=== PATIENT | female | born 1955 | race Caucasian/White ===

== ENCOUNTER 2022-09-04 13:30 | Emergency (ER) | payer MEDICARE, OTHER ==
[~2022-09-04] VITALS: Ht 152.4 cm; Wt 81.8 kg
[2022-09-04] MEDS ORDERED: IOHEXOL 300 MG/ML 100ML BOTTLE IJ ONE (14:52)
[2022-09-04 15:10] LABS: Basophils # (auto) 0 10 ^3/uL (0-0.2); Basophils % (auto) 0.3 % (0.0-2.0); Eosinophils # (auto) 0.2 10 ^3/uL (0-0.8); Eosinophils % (auto) 2.3 % (0.0-7.0); Hematocrit 32.8 % (36.0-46.0); Hemoglobin 11.4 g/dL (12.2-16.2); Lymphocytes # (auto) 1.1 10 ^3/uL (0.4-5.4); Lymphocytes % (auto) 12.2 % (10.0-50.0); Mean Corpuscular Hemoglobin 31.3 pg (28.0-32.0); Mean Corpuscular Hgb Conc. 34.6 g/dL (32.0-36.0); Mean Corpuscular Volume 90.5 fL (80.0-100.0); Monocytes # (auto) 0.5 10 ^3/uL (0-1.3); Monocytes % (auto) 5.7 % (0.0-12.0); Neutrophils % (auto) 79.5 % (37.0-80.0); Nucleated Red Blood Cells % 0.1 %; Red Blood Cells 3.63 10^6/uL (4.0-5.20); Red Cell Distribution Width 14.3 % (11.8-14.3); White Blood Cell 8.8 10^3/uL (4.4-10.8)
[2022-09-04 15:19] LABS: INR 1.02 (0.9-1.15); Partial Thromboplastin Time 26.9 sec (24.6-33.4)
[2022-09-04 15:28] LABS: Albumin 3.2 g/dL (3.4-5.0); BUN/Creatinine Ratio 26.4; Potassium 3.8 mmol/L (3.5-5.1)
[2022-09-04 15:31] LABS: Bilirubin, Total 0.2 mg/dL (0.2-1.0); Total Protein 6.2 g/dL (6.4-8.2)
[2022-09-04] MEDS ORDERED: HYDROcodone-ACET 5/325MG TAB PO ONE ×2 (16:15→17:45)
[2022-09-04] MEDS ORDERED: THIAMINE 100mg/ml INJ (200mg/2ml VIAL) IV ONE (16:45)
[2022-09-04] MEDS ORDERED: FOLIC ACID 1 MG in D5W 5% 50 ML INJ ONE (16:45)
[2022-09-04 16:55] LABS: Urine Bacteria NONE SEEN /hpf (None Seen); Urine Blood Negative /uL (Negative); Urine Mucus FEW (None Seen); Urine WBC 1 /hpf (0 - 5)
[2022-09-04 18:07] LABS: Basophils # (auto) 0 10 ^3/uL (0-0.2); Basophils % (auto) 0.3 % (0.0-2.0); Eosinophils # (auto) 0 10 ^3/uL (0-0.8); Eosinophils % (auto) 0.5 % (0.0-7.0); Hemoglobin 9.9 g/dL (12.2-16.2); Lymphocytes # (auto) 0.8 10 ^3/uL (0.4-5.4); Lymphocytes % (auto) 7.8 % (10.0-50.0); Mean Corpuscular Hemoglobin 31.1 pg (28.0-32.0); Mean Corpuscular Hgb Conc. 34.2 g/dL (32.0-36.0); Monocytes # (auto) 0.6 10 ^3/uL (0-1.3); Monocytes % (auto) 5.7 % (0.0-12.0); Neutrophils # (auto) 8.4 10 ^3/uL (1.6-8.6); Neutrophils % (auto) 85.7 % (37.0-80.0); Nucleated Red Blood Cells % 0.1 %; Red Blood Cells 3.19 10^6/uL (4.0-5.20); Red Cell Distribution Width 14.1 % (11.8-14.3); White Blood Cell 9.8 10^3/uL (4.4-10.8)
[2022-09-04 19:48] VITALS: BP 118/52
[2022-09-04 20:04] VITALS: BP 122/56
[2022-09-04 20:30] VITALS: BP 128/60
[2022-09-04 21:01] VITALS: BP 113/68
[2022-09-04 21:10] VITALS: BP 122/55
[2022-09-04 21:20] VITALS: BP 113/68
== END 2022-09-04 21:54 | disposition short-term general hospital (02) ==
LOC: EDBD 13:30 → ER 13:30
DX: S22.089A Unspecified fracture of T11-T12 vertebra, initial encounter for closed fracture (principal); S30.1XXA Contusion of abdominal wall, initial encounter; S40.211A Abrasion of right shoulder, initial encounter; Z90.710 Acquired absence of both cervix and uterus; Z20.822 Contact with and (suspected) exposure to COVID-19; V43.62XA Car passenger injured in collision with other type car in traffic accident, initial encounter; Y93.89 Activity, other specified; Y92.488 Other paved roadways as the place of occurrence of the external cause; Y99.8 Other external cause status
CPT/HCPCS: 36415; 36430; 71260; 73590; 74177; 80053; 81001; 82140; 82550; 83605; 83690; 83880; 84484; 85025; 85610; 85730; 86850; 86900; 86901; 86920; 87426; 93005; 96365; 96375; 99291; J3411; J7060; P9016; Q9967